=== PATIENT | male | born 1960 | race Caucasian/White ===

== ENCOUNTER 2019-02-19 14:51 | Emergency (ER) | payer BC ==
[~2019-02-19] VITALS: Ht 177.8 cm; Wt 86.4 kg
[2019-02-19] MEDS ORDERED: TETanus/Pertussis (Acell)/Diphther VAC/PF (Tdap-Adult) 0.5ml syringe IM ONE (15:25)
[2019-02-19] MEDS ORDERED: piperacillin/tazo 3.375gm/50ml 50 ML IV ONE (15:40)
[2019-02-19 16:05] LABS: BASOPHILS # (AUTO) 0.1 X10'3 (0-0.2); BASOPHILS % (AUTO) 1.1 % (0-1); EOSINOPHILS # (AUTO) 0.2 X10'3 (0-0.9); EOSINOPHILS % (AUTO) 2.1 % (0-6); HEMATOCRIT 43.3 % (42.0-52.0); LYMPHOCYTES # (AUTO) 1.6 X10'3 (1.1-4.8); MEAN CORPUSCULAR HEMOGLOBIN 31.6 PG (27.0-31.0); MEAN CORPUSCULAR HGB CONC 34.5 g/dL (33.0-36.5); MEAN CORPUSCULAR VOLUME 91.5 FL (78-98); MEAN PLATELET VOLUME 8.2 FL (7.4-10.4); MONOCYTES % (AUTO) 9.7 % (2-12); NEUTROPHILS # (AUTO) 7.2 X10'3 (1.8-7.7); NEUTROPHILS % (AUTO) 71.1 % (42-75); PLATELET COUNT 266 X10'3 (140-440); RED BLOOD COUNT 4.74 X10'6 (4.70-6.10); RED CELL DISTRIBUTION WIDTH 12.9 % (11.5-14.5); WHITE BLOOD COUNT 10.1 X10'3 (4.5-11.0)
[2019-02-19] MEDS ORDERED: AMOX-580 PO (16:16)
[2019-02-19 17:00] VITALS: BP 135/68
== END 2019-02-19 17:03 | disposition home or self-care (01) ==
LOC: ER 14:51
DX: L03.113 Cellulitis of right upper limb (principal); Z98.890 Other specified postprocedural states; Z79.2 Long term (current) use of antibiotics
CPT/HCPCS: 36415; 73130; 85025; 85651; 90471; 90715; 96365; 99284; J2543

== ENCOUNTER 2019-12-26 10:05 | Emergency (ER) | payer BC ==
[~2019-12-26] VITALS: Ht 182.9 cm; Wt 84.1 kg
[2019-12-26] MEDS ORDERED: diltiazem 5mg/ml 5ml inj. IV ONE (10:35)
[2019-12-26] MEDS ORDERED: normal saline 1000ml 1,000 ML IV ONE (10:35)
[2019-12-26 11:10] LABS: BASOPHILS # (AUTO) 0.1 X10'3 (0-0.2); EOSINOPHILS # (AUTO) 0.1 X10'3 (0-0.9); EOSINOPHILS % (AUTO) 1.4 % (0-6); HEMATOCRIT 45.5 % (42.0-52.0); HEMOGLOBIN 15.6 g/dl (14.0-17.9); LYMPHOCYTES # (AUTO) 1.7 X10'3 (1.1-4.8); LYMPHOCYTES % (AUTO) 19.7 % (21-51); MEAN CORPUSCULAR HEMOGLOBIN 31.1 PG (27.0-31.0); MEAN CORPUSCULAR HGB CONC 34.3 g/dL (33.0-36.5); MEAN CORPUSCULAR VOLUME 90.9 FL (78-98); MEAN PLATELET VOLUME 7.8 FL (7.4-10.4); MONOCYTES # (AUTO) 0.7 X10'3 (0-0.9); MONOCYTES % (AUTO) 7.8 % (2-12); NEUTROPHILS # (AUTO) 6.2 X10'3 (1.8-7.7); NEUTROPHILS % (AUTO) 70.1 % (42-75); PLATELET COUNT 282 X10'3 (140-440); RED BLOOD COUNT 5.01 X10'6 (4.70-6.10); RED CELL DISTRIBUTION WIDTH 13.3 % (11.5-14.5); WHITE BLOOD COUNT 8.8 X10'3 (4.5-11.0)
[2019-12-26 11:19] LABS: ALANINE AMINOTRANSFERASE 32 U/L (12-78); ALBUMIN 3.4 G/DL (3.4-5.0); ALBUMIN/GLOBULIN RATIO 0.9 (1.1-1.5); ALKALINE PHOSPHATASE 54 IU/L (46-116); ANION GAP 10 (8-16); ASPARTATE AMINO TRANSFERASE 22 U/L (10-37); BILIRUBIN,TOTAL 0.8 MG/DL (0.1-1.0); BLOOD UREA NITROGEN 18 MG/DL (7-18); BUN/CREATININE RATIO 18.6 (5.4-32.0); CALCIUM 8.5 MG/DL (8.5-10.1); CHLORIDE 101 MMOL/L (99-107); CREATININE 0.97 MG/DL (0.60-1.10); GLUCOSE 106 MG/DL (70-104); POTASSIUM 4.1 MMOL/L (3.5-5.1); SODIUM 133 MMOL/L (135-145); TOTAL CARBON DIOXIDE 22.3 MMOL/L (24-32); TOTAL PROTEIN 7.2 G/DL (6.4-8.2); eGFR 79 ML/MIN
[2019-12-26] MEDS ORDERED: metoprolol tartrate 1mg/ml inj IV ONE ×3 (12:00→13:05)
[2019-12-26] MEDS ORDERED: apixaban 5mg tablet PO ONE (12:00)
[2019-12-26 14:15] VITALS: BP 145/98
== END 2019-12-26 14:17 | disposition home or self-care (01) ==
LOC: ER 10:06
DX: I48.92 Unspecified atrial flutter (principal); I48.91 Unspecified atrial fibrillation; Z98.890 Other specified postprocedural states
CPT/HCPCS: 36415; 71045; 80053; 83880; 84484; 85025; 93005; 96361; 96374; 96375; 96376; 99285; J7030; J3490

== ENCOUNTER 2025-02-13 18:15 | Emergency (ER) | payer MEDICARE, BC ==
[~2025-02-13] VITALS: Ht 177.8 cm; Wt 94.5 kg
[2025-02-13 18:21] VITALS: BP 132/78; PULSE 82; TEMP 97.8; O2SAT 98
[2025-02-13 19:53] VITALS: RESP 16
[2025-02-13] MEDS ORDERED: AMOX-580 PO (20:04)
--- NOTE | 2025-02-13 20:04 | Physician Documentation ---
History of Present Illness ~ General Chief Complaint: Facial Swelling Stated Complaint: FACE SWELLING Time Seen by MD: 19:39 Primary Medical Doctor: Taz Cheng MD Mode of Arrival: Ambulatory History of Present Illness Initial Comments Otherwise healthy 64-year-old male who presents to the emergency department with complaint of right facial swelling and sinus infection. Reports he has had sinus infection for approximately a week now with green nasal discharge and congestion. Today he noted that the right side of his face in his brawny in swelling he has sensation. There are no respiratory symptoms. There was no trismus or complaints of dental injury and/or infection. Denies you medications or prior history of the same. Medication Reconciliation Allergies: Coded Allergies: No Known Allergies (Unverified , 02/13/25) Scheduled Amox Tr/Potassium Clavulanate 875/125 MG (Augmentin 875/125 MG), 1 TAB PO BID Past Medical History Past Medical History: Atrial Fibrillation Past Surgical History: abdominal surgery, orthopedic surgeries Lives In: Home Occupation: employed Review of Systems All Other Systems at this time: Reviewed and Negative Constitutional: Reports: see HPI; Denies: chills, fever, malaise, weakness Eyes: Reports: see HPI ENT: Reports: see HPI Respiratory: Reports: no symptoms reported Cardiovascular: Reports: no symptoms reported Neurological: Reports: no symptoms reported Musculoskeletal: Reports: no symptoms reported Integumentary: Reports: other (Facial/) Allergic/Immunologic: Reports: no symptoms reported Hematologic/Lymphatic: Reports: no symptoms reported Endocrine: Reports: no symptoms reported Physical Exam Physical Exam Vital Signs: Temperature: 97.8, Source: Temporal, Heart Rate: 82, Respiratory Rate: 16, BP: 132/78, Pulse Oximetry: 98, Weight: 94.550 Progress Results/Orders Results/Orders Completed Orders - SHIRA CRUZ PAC Amox Tr/Potassium Clavulanate (Augmentin (02/13/25 20:05) Vital Signs 02/13/25 02/13/25 18:21 19:53 Temp 97.8 Pulse 82 Resp 18 16 B/P (MAP) 132/78 Pulse Ox 98 Medical Decision Making Differential Diagnosis Examination history consistent with right facial cellulitis secondary to sinus infection suspected. Do not suspect cavernous sinus syndrome, Mahad's angina, angioedema and/or odontogenic infection. First dose Augmentin provided in the emergency department. Patient to be discharged with Augmentin Rx and strict aftercare instructions to return in 24-48 hours if symptoms worsen. Patient's submental node is soft, no clinical suspicion for zoster, Schuler's palsy, no trismus at discharge and no suspicion of retropharyngeal or pharyngeal infection . Departure Disposition: HOME / SELF CARE / HOMELESS Impression: Primary Impression: Sinusitis Qualified Codes: J01.00 - Acute maxillary sinusitis, unspecified Additional Impression: Facial cellulitis Condition: Stable Additional Instructions: Tonight you received the 1st dose of antibiotic for facial cellulitis with sinusitis. Make follow up appointment with the primary care physician for 24 or 48 hour recheck and return in the emergency department if worse. Thank you for visiting [facility] Emergency Department. Referrals: NO PRIMARY CARE PROVIDER (PCP) Prescriptions Amox Tr/Potassium Clavulanate 875/125 MG (Augmentin 875/125 MG) 875 Mg-125 Mg Tablet 1 TAB PO BID, #20 TAB Prov: SHIRA CRUZ PAC 02/13/25 Education Educated: Patient Educated regarding: diagnosis, treatment Signature Scribe Signature: . Attestation: . SHIRA CRUZ PAC Feb 13, 2025 20:04
[2025-02-13] MEDS: amox tr/potassium clavulanate 875/125mg TAB PO ONE (20:10)
== END 2025-02-13 20:14 | disposition home or self-care (01) ==
LOC: ER 18:16
DX: J32.9 Chronic sinusitis, unspecified (principal); L03.211 Cellulitis of face; I48.91 Unspecified atrial fibrillation
CPT/HCPCS: 99283